=== PATIENT | female | born 1980 | race African-American/Black ===

== ENCOUNTER 2020-09-30 03:47 | Emergency (ER) | payer SELFPAY ==
[~2020-09-30] VITALS: Ht 175.3 cm; Wt 65.0 kg
[2020-09-30] MEDS ORDERED: KETOROLAC 30MG/ML VIAL IV STA (05:56)
[2020-09-30] MEDS ORDERED: SODIUM CHLORIDE 0.9% 1,000 ML IV ONE (06:00)
[2020-09-30] MEDS ORDERED: LORAZEPAM 2MG/ML CPJ IV ONE (07:15)
[2020-09-30 08:17] LABS: CLARITY URINE CLEAR (CLEAR); COLOR URINE YELLOW (YELLOW); KETONES URINE 1+ (NEGATIVE); LEUKOCYTE ESTERASE URINE TRACE (NEGATIVE); NITRITE URINE NEGATIVE (NEGATIVE); OCCULT BLOOD URINE NEGATIVE (NEGATIVE); PH URINE >=9.0 (4.5-8.0); PROTEIN URINE 1+ (NEGATIVE)
[2020-09-30 09:12] LABS: HCG SCREEN NEGATIVE
[2020-09-30 10:48] LABS: CHLORIDE 114 mEq/L (98-107)
[2020-09-30 11:04] LABS: HEMATOCRIT. 36.9 % (36.0-48.0); HEMOGLOBIN. 12.8 g/dL (12.0-16.0); MEAN CORPUSCULAR HEMOGLOBIN 31.9 pg (28.0-32.0); MEAN CORPUSCULAR VOLUME 91.7 fL (81.0-99.0); MEAN PLATELET VOLUME 7.6 fl (7.4-10.4); PLATELET 246 x1000/uL (130-400); RED BLOOD CELL COUNT 4.03 mill/uL (4.2-5.4); RED CELL DISTRIBUTION WIDTH 13.7 % (11.6-14.6)
[2020-09-30] MEDS ORDERED: AMOX-424 MT (11:21)
[2020-09-30] MEDS ORDERED: IBUP-2029 MT (11:22)
[2020-09-30] MEDS ORDERED: MORPHINE SULFATE 4 MG/ML CPJ (NOT FOR IM USE) IV STA (11:26)
[2020-09-30] MEDS ORDERED: ONDANSETRON HCL 4MG/2ML INJ IV STA (11:26)
[2020-09-30 12:00] LABS: PLATELET ESTIMATE NORMAL
[2020-09-30 12:15] VITALS: BP 130/80
== END 2020-09-30 12:16 | disposition home or self-care (01) ==
LOC: ER 03:47
DX: N10 Acute pyelonephritis (principal); N20.0 Calculus of kidney; R03.0 Elevated blood-pressure reading, without diagnosis of hypertension
CPT/HCPCS: 36415; 74176; 80053; 81003; 81025; 83690; 84703; 85025; 96361; 96374; 96375; 99285; J1885; J2060; J2270; J2405; J7030